=== PATIENT | female | born 1955 | race Caucasian/White ===

== ENCOUNTER 2018-09-08 14:04 | Emergency (ER) | payer MEDICARE, OTHER, MEDICAID ==
[2018-09-08] MEDS: KETOROLAC 30 MG INJ IM (16:35)
== END 2018-09-08 17:46 | disposition home or self-care (01) ==
LOC: FTE 14:04
DX: R51 Headache (principal); I10 Essential (primary) hypertension; Z79.82 Long term (current) use of aspirin; Z86.73 Personal history of transient ischemic attack (TIA), and cerebral infarction without residual deficits
CPT/HCPCS: 70450; 96372; 99285-25

== ENCOUNTER 2019-05-05 08:48 | Emergency (ER) | payer MEDICARE, OTHER | END 2019-05-05 12:17 | disposition home or self-care (01) | LOC: FTE 08:48 | DX: R39.89 Other symptoms and signs involving the genitourinary system (principal); I10 Essential (primary) hypertension; Z79.82 Long term (current) use of aspirin; Z86.73 Personal history of transient ischemic attack (TIA), and cerebral infarction without residual deficits | CPT/HCPCS: 76856; 81003; 99284-25 ==